=== PATIENT | female | born 1930 | race African-American/Black ===

== ENCOUNTER 2017-10-29 17:13 | Inpatient (IN) ==
[2017-10-29 21:11] LABS: Basophils % 0.4 % (0.0-0.8); Eosinophils % 0.8 % (0.00-10.9); Hematocrit 37.5 VOL% (35.7-47.0); Hemoglobin 13.5 GM/DL (12.0-16.0); Immature Granulocytes % 0.8 %; Immature Granulocytes Absolute 0.04 #; Lymphocytes # 2.2 10*3/uL (1.4-4.0); Mean Corpuscular Hemoglobin 30 PG (27-34); Mean Corpuscular Volume 83.3 FL (87-102); Mean Platelet Volume 9.9 FL (9.6-12.0); Monocytes # 0.6 10*3/uL (0.11-0.8); Monocytes % 12.1 % (1.7-12.7); Neutrophils # 1.9 10*3/uL (1.4-7.4); Neutrophils % 39.9 % (38.7-73.9); Platelet Count 208 T/CUMM (130-400); White Blood Count 4.9 T/CUMM (4-12)
[2017-10-29 21:29] LABS: Blood Urea Nitrogen 5 MG/DL (7-18); Calcium 8.1 MG/DL (8.5-10.1); Glucose 128 MG/DL (74-106); Osmolality,Calculated 240.2 MOS/KG (273-304); Potassium 3.6 MMOL/L (3.5-5.1); Troponin I Only < 0.015 NG/ML (0.00-0.045)
[2017-10-29 21:30] LABS: Sodium 120 MMOL/L (136-145)
[2017-10-29 22:30] LABS: Atypical Lymphocytes Few; Burr Cells Few; Eosinophils 1 % (0-10); Lymphocytes 58 % (20-55); Platelet Estimate Normal; Poikilocytosis Slight; Segmented Neutrophils 33 % (50-85); Total Cells Counted 100
[2017-10-29] MEDS: SODIUM CHLORIDE 0.9% 1,000 ML IV SCH (23:44)
[2017-10-30] MEDS: LEVOTHYROXINE 50 MCG TABLET PO SCH (06:17)
[2017-10-30 06:27] LABS: Calcium 8.1 MG/DL (8.5-10.1); Osmolality,Calculated 248.5 MOS/KG (273-304); Thyroid Stimulating Hormone 2.98 uIU/ml (0.358-3.74)
[2017-10-30] MEDS ORDERED: POTASSIUM CHLORIDE 20 MEQ TABLET PO PRN (08:16)
[2017-10-30] MEDS: amLODIPine 10 MG TABLET PO SCH (08:49)
[2017-10-30] MEDS: PRAVASTATIN 20 MG TABLET PO SCH (08:49)
[2017-10-30] MEDS: CARVEDILOL 6.25 MG TABLET PO SCH ×2 (08:49→21:05)
[2017-10-30] MEDS: SODIUM CHLORIDE 0.9% 1,000 ML IV SCH (11:32)
[2017-10-30] MEDS: SODIUM CHLORIDE 1 GM TABLET PO SCH ×2 (16:36→21:05)
[2017-10-31] MEDS: SODIUM CHLORIDE 0.9% 1,000 ML IV SCH (01:23)
[2017-10-31 04:56] LABS: Basophils % 0.2 % (0.0-0.8); Eosinophils % 0.5 % (0.00-10.9); Hematocrit 35.9 VOL% (35.7-47.0); Hemoglobin 12.6 GM/DL (12.0-16.0); Immature Granulocytes % 0.2 %; Immature Granulocytes Absolute 0.01 #; Lymphocytes % 45.5 % (21.3-54.2); Mean Corpuscular HGB Conc 35.1 GM/DL (32-36); Mean Corpuscular Hemoglobin 30 PG (27-34); Mean Corpuscular Volume 85.1 FL (87-102); Mean Platelet Volume 9.3 FL (9.6-12.0); Monocytes # 0.8 10*3/uL (0.11-0.8); Monocytes % 17.4 % (1.7-12.7); Neutrophils # 1.6 10*3/uL (1.4-7.4); Neutrophils % 36.2 % (38.7-73.9); Platelet Count 282 T/CUMM (130-400); Red Blood Count 4.22 MC/CUMM (3.8-5.5); Red Cell Distribution Width 12.3 % (9.3-17.3); White Blood Count 4.4 T/CUMM (4-12)
[2017-10-31 05:22] LABS: Calcium 8.2 MG/DL (8.5-10.1); Osmolality,Calculated 260.7 MOS/KG (273-304); Potassium 3.5 MMOL/L (3.5-5.1)
[2017-10-31 05:23] LABS: Eosinophils 1 % (0-10); Hypochromasia 1+; Lymphocytes 50 % (20-55); Segmented Neutrophils 38 % (50-85); Total Cells Counted 100
[2017-10-31 05:25] LABS: Atypical Lymphocytes Few; Microcytosis Slight; Platelet Estimate Normal
[2017-10-31] MEDS: LEVOTHYROXINE 50 MCG TABLET PO SCH (06:09)
[2017-10-31] MEDS: CARVEDILOL 6.25 MG TABLET PO SCH (08:54)
[2017-10-31] MEDS: PRAVASTATIN 20 MG TABLET PO SCH (08:54)
[2017-10-31] MEDS: amLODIPine 10 MG TABLET PO SCH (08:54)
[2017-10-31] MEDS: SODIUM CHLORIDE 1 GM TABLET PO SCH (08:54)
[2017-10-31 11:24] VITALS: BP 126/69
== END 2017-10-31 11:50 | disposition home or self-care (01) | DRG 641 ==
LOC: N.ED 17:13 → N.EDINP 21:44 → N.3E 22:32
PROVIDERS: ADMIT Internal Medicine Infectious Disease; ATTEND Internal Medicine Infectious Disease

== ENCOUNTER 2017-11-02 03:14 | Inpatient (IN) ==
[2017-11-02] MEDS ORDERED: SODIUM CHLORIDE 0.9% 500 ML IV STA (04:24)
[2017-11-02 04:35] LABS: Apearance,Urine Slightly Hazy (Clear); Bilirubin,Urine Negative (Negative); Blood, Urine Negative (Negative); Glucose,Urine (UA) 50 mg/dL (Negative); Granular Casts,Urine 3 /LPF (0-1); Hyaline Casts,Urine 6 /LPF (0-3); Ketones,Urine Negative (Negative); Mucus,Urine Few /LPF (Occasional); Nitrite,Urine Negative (Negative); Protein,Urine 100 MG/DL; RBC,Urine 6 /HPF (0-4); Squamous Epithelial Cell,Urine Few /HPF (0-10); Urine Color Yellow (Yellow); Urine Urobilinogen < 2.0 EU/DL (0.2-1.0); WBC,Urine 3 /HPF (0-6)
[2017-11-02] MEDS ORDERED: cefTRIAXone 1,000 MG in SODIUM CHLORIDE 0.9% 100 ML IV STA (04:43)
[2017-11-02] MEDS ORDERED: cefTRIAXone 1,000 MG VIAL ONE (04:52)
[2017-11-02 04:59] LABS: Basophils % 0.3 % (0.0-0.8); Eosinophils % 0.5 % (0.00-10.9); Hematocrit 36.5 VOL% (35.7-47.0); Hemoglobin 13.5 GM/DL (12.0-16.0); Immature Granulocytes % 0.8 %; Immature Granulocytes Absolute 0.05 #; Lymphocytes # 1.6 10*3/uL (1.4-4.0); Lymphocytes % 26.4 % (21.3-54.2); Mean Corpuscular Hemoglobin 31 PG (27-34); Mean Corpuscular Volume 82.4 FL (87-102); Mean Platelet Volume 8.7 FL (9.6-12.0); Monocytes # 0.9 10*3/uL (0.11-0.8); Monocytes % 14.5 % (1.7-12.7); Neutrophils # 3.5 10*3/uL (1.4-7.4); Neutrophils % 57.5 % (38.7-73.9); Platelet Count 310 T/CUMM (130-400); Red Blood Count 4.43 MC/CUMM (3.8-5.5); Red Cell Distribution Width 11.5 % (9.3-17.3); White Blood Count 6.1 T/CUMM (4-12)
[2017-11-02] MEDS ORDERED: ONDANSETRON 4 MG/2 ML VIAL IV STA (04:59)
[2017-11-02 05:06] LABS: INR 0.9; PT Patient Result 9.9 SECS
[2017-11-02 05:25] LABS: Alanine Aminotransferase 22 U/L (13-56); Albumin 3.9 G/DL (3.4-5.0); Alkaline Phosphatase 167 U/L (45-117); Aspartate Amino Transferase 22 U/L (0-37); Blood Urea Nitrogen 8 MG/DL (7-18); Calcium 8.4 MG/DL (8.5-10.1); Glucose 132 MG/DL (74-106); Magnesium 1.6 MG/DL (1.8-2.4); Osmolality,Calculated 237.5 MOS/KG (273-304); Potassium 3.2 MMOL/L (3.5-5.1); Total Protein 7.7 G/DL (6.4-8.3); Troponin I Only < 0.015 NG/ML (0.00-0.045)
[2017-11-02 05:27] LABS: Ammonia 33 UMOL/L (11-32)
[2017-11-02 05:31] LABS: Sodium 118 MMOL/L (136-145)
[2017-11-02] MEDS ORDERED: HYDROCORTISONE 100 MG VIAL IV STA (05:32)
[2017-11-02] MEDS ORDERED: MAGNESIUM SULF RIDER 2 GM in PREMIX 1 EACH IV STA (05:34)
[2017-11-02] MEDS ORDERED: POTASSIUM CHLORIDE 20 MEQ TABLET PO STA (05:34)
[2017-11-02] MEDS ORDERED: ONDANSETRON 4 MG/2 ML VIAL ONE (05:42)
[2017-11-02] MEDS ORDERED: MAGNESIUM SULF RIDER 50 ML IV ONE (05:42)
[2017-11-02] MEDS ORDERED: POTASSIUM CHLORIDE 20 MEQ TABLET PO ONE (05:42)
[2017-11-02] MEDS ORDERED: HYDROCORTISONE 100 MG VIAL ONE (05:42)
[2017-11-02] MEDS: SODIUM CHLORIDE 0.9% 1,000 ML IV SCH ×2 (08:51→22:24)
[2017-11-02] MEDS: POTASSIUM CHLORIDE 20 MEQ TABLET PO SCH ×3 (08:52→16:31)
[2017-11-02] MEDS: CARVEDILOL 6.25 MG TABLET PO SCH ×2 (08:52→20:13)
[2017-11-02] MEDS: LEVOTHYROXINE 50 MCG TABLET PO SCH (08:52)
[2017-11-02] MEDS: amLODIPine 10 MG TABLET PO SCH (08:52)
[2017-11-02] MEDS: PRAVASTATIN 20 MG TABLET PO SCH (08:52)
[2017-11-02] MEDS ORDERED: MAGNESIUM SULF RIDER 4 GM in PREMIX 1 EACH IV ONE (09:00)
[2017-11-02] MEDS ORDERED: ONDANSETRON 4 MG/2 ML VIAL IV PRN (10:31)
[2017-11-02] MEDS: ONDANSETRON 4 MG/2 ML VIAL IV PRN ×2 (14:35→19:42)
[2017-11-03] MEDS: SODIUM CHLORIDE 0.9% 1,000 ML IV SCH ×2 (04:13→11:29)
[2017-11-03 05:47] LABS: Basophils % 0.1 % (0.0-0.8); Eosinophils % 0.1 % (0.00-10.9); Hematocrit 31.8 VOL% (35.7-47.0); Hemoglobin 11.9 GM/DL (12.0-16.0); Immature Granulocytes % 0.4 %; Immature Granulocytes Absolute 0.03 #; Lymphocytes # 2.2 10*3/uL (1.4-4.0); Lymphocytes % 30.3 % (21.3-54.2); Mean Corpuscular HGB Conc 37.4 GM/DL (32-36); Mean Corpuscular Hemoglobin 30 PG (27-34); Mean Corpuscular Volume 81.1 FL (87-102); Mean Platelet Volume 8.8 FL (9.6-12.0); Monocytes % 14.5 % (1.7-12.7); Neutrophils # 3.9 10*3/uL (1.4-7.4); Neutrophils % 54.6 % (38.7-73.9); Platelet Count 297 T/CUMM (130-400); Red Blood Count 3.92 MC/CUMM (3.8-5.5); Red Cell Distribution Width 11.9 % (9.3-17.3); White Blood Count 7.2 T/CUMM (4-12)
[2017-11-03] MEDS: LEVOTHYROXINE 50 MCG TABLET PO SCH (05:58)
[2017-11-03 06:24] LABS: Calcium 7.5 MG/DL (8.5-10.1); Osmolality,Calculated 254.1 MOS/KG (273-304); Potassium 3.2 MMOL/L (3.5-5.1)
[2017-11-03] MEDS: PRAVASTATIN 20 MG TABLET PO SCH (09:52)
[2017-11-03] MEDS: CARVEDILOL 6.25 MG TABLET PO SCH ×2 (09:52→22:07)
[2017-11-03] MEDS: cefTRIAXone 1,000 MG in SYRINGE 1 EACH IV SCH (09:53)
[2017-11-03] MEDS: amLODIPine 10 MG TABLET PO SCH (09:53)
[2017-11-03] MEDS ORDERED: MAGNESIUM SULF RIDER 2 GM in PREMIX 1 EACH IV ONE (14:50)
[2017-11-03] MEDS: POTASSIUM CHLORIDE 20 MEQ TABLET PO SCH ×3 (15:53→22:07)
[2017-11-03] MEDS: ONDANSETRON 4 MG/2 ML VIAL IV PRN (15:53)
[2017-11-04 03:02] LABS: Calcium 7.9 MG/DL (8.5-10.1); Magnesium 2.3 MG/DL (1.8-2.4); Osmolality,Calculated 246.8 MOS/KG (273-304); Potassium 3.6 MMOL/L (3.5-5.1)
[2017-11-04] MEDS: LEVOTHYROXINE 50 MCG TABLET PO SCH (05:49)
[2017-11-04] MEDS: CARVEDILOL 6.25 MG TABLET PO SCH ×2 (08:44→21:40)
[2017-11-04] MEDS: amLODIPine 10 MG TABLET PO SCH (08:44)
[2017-11-04] MEDS: cefTRIAXone 1,000 MG in SYRINGE 1 EACH IV SCH (08:44)
[2017-11-04] MEDS: PRAVASTATIN 20 MG TABLET PO SCH (08:44)
[2017-11-04] MEDS: SODIUM CHLORIDE 0.9% 1,000 ML IV SCH ×2 (11:59)
[2017-11-05] MEDS: LEVOTHYROXINE 50 MCG TABLET PO SCH (06:25)
[2017-11-05] MEDS: SODIUM CHLORIDE 0.9% 1,000 ML IV SCH ×3 (06:25→14:24)
[2017-11-05] MEDS: PRAVASTATIN 20 MG TABLET PO SCH (09:25)
[2017-11-05] MEDS: CARVEDILOL 6.25 MG TABLET PO SCH (09:25)
[2017-11-05] MEDS: amLODIPine 10 MG TABLET PO SCH (09:25)
[2017-11-05] MEDS: cefTRIAXone 1,000 MG in SYRINGE 1 EACH IV SCH (09:26)
[2017-11-05 10:13] LABS: Calcium 8.1 MG/DL (8.5-10.1); Osmolality,Calculated 252.2 MOS/KG (273-304); Potassium 3.8 MMOL/L (3.5-5.1)
[2017-11-05] MEDS: CARVEDILOL 12.5 MG TABLET PO SCH (16:21)
[2017-11-06] MEDS: SODIUM CHLORIDE 0.9% 1,000 ML IV SCH ×2 (00:27→07:33)
[2017-11-06] MEDS: LEVOTHYROXINE 50 MCG TABLET PO SCH (06:27)
[2017-11-06 07:04] LABS: Calcium 8.3 MG/DL (8.5-10.1); Osmolality,Calculated 258.8 MOS/KG (273-304); Potassium 3.3 MMOL/L (3.5-5.1)
[2017-11-06] MEDS: PRAVASTATIN 20 MG TABLET PO SCH (08:06)
[2017-11-06] MEDS: amLODIPine 10 MG TABLET PO SCH (08:06)
[2017-11-06] MEDS: CARVEDILOL 12.5 MG TABLET PO SCH (08:07)
[2017-11-06] MEDS ORDERED: TOLVAPTAN 15 MG TABLET PO SCH (11:00)
[2017-11-06 11:59] VITALS: BP 147/68
== END 2017-11-06 13:14 | DRG 641 ==
LOC: N.ED 03:14 → N.EDINP 06:15 → SUATTDRO 06:15 → N.EDINP 07:56 → N.2E 08:03
PROVIDERS: ADMIT Internal Medicine; ATTEND Internal Medicine

== ENCOUNTER 2017-11-07 10:46 | Inpatient (IN) ==
[2017-11-07 11:27] LABS: Basophils % 0.2 % (0.0-0.8); Eosinophils % 0.1 % (0.00-10.9); Hematocrit 35.8 VOL% (35.7-47.0); Hemoglobin 12.5 GM/DL (12.0-16.0); Immature Granulocytes % 0.5 %; Immature Granulocytes Absolute 0.04 #; Mean Corpuscular HGB Conc 34.9 GM/DL (32-36); Mean Corpuscular Hemoglobin 30 PG (27-34); Mean Corpuscular Volume 85.9 FL (87-102); Mean Platelet Volume 8.2 FL (9.6-12.0); Monocytes # 1.2 10*3/uL (0.11-0.8); Monocytes % 14.5 % (1.7-12.7); Neutrophils # 5.2 10*3/uL (1.4-7.4); Neutrophils % 60.7 % (38.7-73.9); Platelet Count 363 T/CUMM (130-400); Red Blood Count 4.17 MC/CUMM (3.8-5.5); Red Cell Distribution Width 12.9 % (9.3-17.3); White Blood Count 8.5 T/CUMM (4-12)
[2017-11-07 11:53] LABS: Lactic Acid 1.2 MMOL/L (0.4-2.0)
[2017-11-07 12:04] LABS: Albumin 3.4 G/DL (3.4-5.0); Bilirubin,Total 0.8 MG/DL (0.2-1.0); Calcium 8.7 MG/DL (8.5-10.1); Osmolality,Calculated 278.5 MOS/KG (273-304); Potassium 3.7 MMOL/L (3.5-5.1); Total Protein 7.4 G/DL (6.4-8.3)
[2017-11-07 12:25] LABS: Apearance,Urine CLEAR (Clear); Bilirubin,Urine Negative (Negative); Blood, Urine Negative (Negative); Glucose,Urine (UA) Negative (Negative); Ketones,Urine Negative (Negative); Mucus,Urine Occasional /LPF (Occasional); Nitrite,Urine Negative (Negative); Protein,Urine Negative; RBC,Urine <1 /HPF (0-4); Squamous Epithelial Cell,Urine Occasional /HPF (0-10); Urine Color Straw (Yellow); Urine Specific Gravity 1.003 (1.001-1.035); Urine Urobilinogen < 2.0 EU/DL (0.2-1.0); WBC,Urine 1 /HPF (0-6)
[2017-11-07] MEDS ORDERED: ACYCLOVIR INJ 1,250 MG in SODIUM CHLORIDE 0.9% 250 ML IV SCH (13:30)
[2017-11-07] MEDS ORDERED: AMPICILLIN INJ 1,000 MG in SODIUM CHLORIDE 0.9% 100 ML IV SCH (13:30)
[2017-11-07 14:06] LABS: ABG Base Excess 4.4 MMOL/L (-2.5-2.5); ABG HCO3 28.2 MMOL/L (20-26); ABG Oxygen Saturation 91.9 % (95-100); ABG PCO2 39.5 MM HG (35-48); ABG PH 7.464 (7.35-7.45); ABG PO2 61.2 MM HG (80-95)
[2017-11-07] MEDS ORDERED: cefTRIAXone 1,000 MG VIAL ONE (15:17)
[2017-11-07 16:24] LABS: Glucose,CSF 59 MG/DL (40-70)
[2017-11-07 16:54] LABS: Appearance,CSF Cloudy; Lymphocytes,CSF 40 %; Neutrophils,CSF 60 %; Red Blood Cell,CSF 2505 C/CUMM; White Blood Cell,CSF 75 C/CUMM
[2017-11-07] MEDS: cefTRIAXone 2,000 MG in SYRINGE 1 EACH IV SCH (18:15)
[2017-11-07] MEDS: VANCOMYCIN INJ 1,000 MG in SODIUM CHLORIDE 0.9% 250 ML IV SCH (18:53)
[2017-11-07] MEDS: ACYCLOVIR INJ 600 MG in SODIUM CHLORIDE 0.9% 100 ML IV SCH (19:55)
[2017-11-07] MEDS: SODIUM CHLORIDE 0.9% 1,000 ML IV SCH (19:55)
[2017-11-07] MEDS: AMPICILLIN INJ 2,000 MG in SODIUM CHLORIDE 0.9% 100 ML IV SCH (21:15)
[2017-11-08] MEDS: cefTRIAXone 2,000 MG in SYRINGE 1 EACH IV SCH ×2 (03:45→13:15)
[2017-11-08] MEDS: AMPICILLIN INJ 2,000 MG in SODIUM CHLORIDE 0.9% 100 ML IV SCH ×2 (04:05→08:48)
[2017-11-08 05:02] LABS: Basophils % 0.2 % (0.0-0.8); Hematocrit 32.5 VOL% (35.7-47.0); Hemoglobin 11.5 GM/DL (12.0-16.0); Immature Granulocytes % 0.5 %; Immature Granulocytes Absolute 0.06 #; Lymphocytes # 1.3 10*3/uL (1.4-4.0); Lymphocytes % 10.6 % (21.3-54.2); Mean Corpuscular HGB Conc 35.4 GM/DL (32-36); Mean Corpuscular Hemoglobin 30 PG (27-34); Mean Corpuscular Volume 85.8 FL (87-102); Mean Platelet Volume 8.2 FL (9.6-12.0); Monocytes # 1.8 10*3/uL (0.11-0.8); Monocytes % 14.1 % (1.7-12.7); Neutrophils # 9.5 10*3/uL (1.4-7.4); Neutrophils % 74.6 % (38.7-73.9); Platelet Count 285 T/CUMM (130-400); Red Blood Count 3.79 MC/CUMM (3.8-5.5); Red Cell Distribution Width 13.2 % (9.3-17.3); White Blood Count 12.7 T/CUMM (4-12)
[2017-11-08 05:28] LABS: Albumin 3.1 G/DL (3.4-5.0); Bilirubin,Total 0.9 MG/DL (0.2-1.0); Calcium 8.4 MG/DL (8.5-10.1); Osmolality,Calculated 289.7 MOS/KG (273-304); Potassium 3.3 MMOL/L (3.5-5.1); Total Protein 6.5 G/DL (6.4-8.3)
[2017-11-08] MEDS: ACYCLOVIR INJ 600 MG in SODIUM CHLORIDE 0.9% 100 ML IV SCH ×3 (05:35→22:10)
[2017-11-08] MEDS ORDERED: POTASSIUM CHLORIDE 20 MEQ TABLET PO ONE (08:30)
[2017-11-08] MEDS ORDERED: DEXTROSE 50% 25 GM/50 ML VIAL IV PRN (08:38)
[2017-11-08] MEDS ORDERED: GLUCAGON 1 MG VIAL IM PRN (08:38)
[2017-11-08] MEDS ORDERED: CARVEDILOL 6.25 MG TABLET PO SCH (09:00)
[2017-11-08] MEDS: MULTIVITAMIN LIQUID (CENTRUM) 60 ML BOTTLE PER TUBE SCH (09:20)
[2017-11-08] MEDS: SODIUM CHLORIDE 0.9% 1,000 ML IV SCH (09:46)
[2017-11-08] MEDS: POTASSIUM CHLORIDE 20 MEQ/15 ML UDCUP PER TUBE PRN ×3 (12:10→17:06)
[2017-11-08] MEDS: INSULIN REGULAR 100 UNIT/ML SUBCUT SCH ×2 (12:24→17:09)
[2017-11-08] MEDS ORDERED: LORazepam 2 MG/1 ML VIAL IM ONE (13:20)
[2017-11-08] MEDS: AMPICILLIN INJ 2,000 MG in SODIUM CHLORIDE 0.9% 50 ML IV SCH ×2 (15:11→22:09)
[2017-11-08] MEDS ORDERED: ACETAMINOPHEN 325 MG/10.15 ML UDCUP PO PRN (15:23)
[2017-11-08] MEDS: POTASSIUM CHLORIDE 20 MEQ TABLET PO SCH (15:43)
[2017-11-08] MEDS ORDERED: CARVEDILOL 12.5 MG TABLET PO SCH (17:00)
[2017-11-08] MEDS: VANCOMYCIN INJ 1,000 MG in SODIUM CHLORIDE 0.9% 250 ML IV SCH (17:07)
[2017-11-08] MEDS: CARVEDILOL 12.5 MG TABLET PO SCH (22:09)
[2017-11-09] MEDS: INSULIN REGULAR 100 UNIT/ML SUBCUT SCH ×4 (00:33→18:25)
[2017-11-09] MEDS: cefTRIAXone 2,000 MG in SYRINGE 1 EACH IV SCH ×2 (02:59→14:53)
[2017-11-09] MEDS: AMPICILLIN INJ 2,000 MG in SODIUM CHLORIDE 0.9% 50 ML IV SCH ×4 (04:00→21:42)
[2017-11-09] MEDS: HALOPERIDOL 5 MG/ML AMP IV PRN ×2 (04:52→15:08)
[2017-11-09 06:21] LABS: Basophils % 0.1 % (0.0-0.8); Eosinophils % 0.1 % (0.00-10.9); Hematocrit 34.9 VOL% (35.7-47.0); Hemoglobin 11.8 GM/DL (12.0-16.0); Immature Granulocytes % 0.5 %; Immature Granulocytes Absolute 0.08 #; Lymphocytes # 2.3 10*3/uL (1.4-4.0); Lymphocytes % 15.1 % (21.3-54.2); Mean Corpuscular HGB Conc 33.8 GM/DL (32-36); Mean Corpuscular Hemoglobin 30 PG (27-34); Mean Corpuscular Volume 89.5 FL (87-102); Mean Platelet Volume 8.8 FL (9.6-12.0); Monocytes # 2.1 10*3/uL (0.11-0.8); Monocytes % 13.8 % (1.7-12.7); Neutrophils # 10.7 10*3/uL (1.4-7.4); Neutrophils % 70.4 % (38.7-73.9); Platelet Count 252 T/CUMM (130-400); Red Cell Distribution Width 13.9 % (9.3-17.3); White Blood Count 15.3 T/CUMM (4-12)
[2017-11-09] MEDS: LEVOTHYROXINE 50 MCG TABLET PO SCH (06:30)
[2017-11-09] MEDS: ACYCLOVIR INJ 600 MG in SODIUM CHLORIDE 0.9% 100 ML IV SCH ×3 (06:30→21:43)
[2017-11-09 06:53] LABS: Albumin 3.2 G/DL (3.4-5.0); Bilirubin,Total 0.8 MG/DL (0.2-1.0); Magnesium 2.4 MG/DL (1.8-2.4); Osmolality,Calculated 309.6 MOS/KG (273-304); Potassium 3.8 MMOL/L (3.5-5.1); Total Protein 7.2 G/DL (6.4-8.3)
[2017-11-09 06:57] LABS: Osmolality,Calculated 307.7 MOS/KG (273-304); Potassium 3.6 MMOL/L (3.5-5.1); Prealbumin 16.9 MG/DL (20-40)
[2017-11-09] MEDS: CARVEDILOL 12.5 MG TABLET PO SCH ×2 (10:15→18:44)
[2017-11-09] MEDS: POTASSIUM CHLORIDE 20 MEQ TABLET PO SCH (10:15)
[2017-11-09] MEDS: PRAVASTATIN 20 MG TABLET PO SCH (10:15)
[2017-11-09] MEDS: MULTIVITAMIN LIQUID (CENTRUM) 60 ML BOTTLE PER TUBE SCH (12:33)
[2017-11-09 16:25] LABS: Apearance,Urine CLOUDY (Clear); Bilirubin,Urine Negative (Negative); Blood, Urine Moderate mg/dL (Negative); Glucose,Urine (UA) Negative (Negative); Ketones,Urine Negative (Negative); Mucus,Urine Occasional /LPF (Occasional); Nitrite,Urine Negative (Negative); Protein,Urine Negative; RBC,Urine 28 /HPF (0-4); Squamous Epithelial Cell,Urine Occasional /HPF (0-10); Urine Color Yellow (Yellow); Urine Specific Gravity 1.016 (1.001-1.035); Urine Urobilinogen < 2.0 EU/DL (0.2-1.0); WBC,Urine 13 /HPF (0-6)
[2017-11-09] MEDS: VANCOMYCIN INJ 1,000 MG in SODIUM CHLORIDE 0.9% 250 ML IV SCH (19:00)
[2017-11-10] MEDS ORDERED: hydrALAZINE 20 MG/1 ML VIAL IV PRN (00:06)
[2017-11-10] MEDS: INSULIN REGULAR 100 UNIT/ML SUBCUT SCH ×4 (00:23→18:03)
[2017-11-10] MEDS: AMPICILLIN INJ 2,000 MG in SODIUM CHLORIDE 0.9% 50 ML IV SCH (02:52)
[2017-11-10] MEDS: cefTRIAXone 2,000 MG in SYRINGE 1 EACH IV SCH ×2 (02:53→13:38)
[2017-11-10 04:07] LABS: Basophils % 0.3 % (0.0-0.8); Eosinophils % 0.3 % (0.00-10.9); Hematocrit 32.4 VOL% (35.7-47.0); Hemoglobin 10.9 GM/DL (12.0-16.0); Immature Granulocytes % 0.7 %; Immature Granulocytes Absolute 0.09 #; Lymphocytes # 2.2 10*3/uL (1.4-4.0); Lymphocytes % 17.2 % (21.3-54.2); Mean Corpuscular HGB Conc 33.6 GM/DL (32-36); Mean Corpuscular Hemoglobin 31 PG (27-34); Mean Platelet Volume 8.5 FL (9.6-12.0); Monocytes # 1.6 10*3/uL (0.11-0.8); Monocytes % 12.8 % (1.7-12.7); Neutrophils # 8.7 10*3/uL (1.4-7.4); Neutrophils % 68.7 % (38.7-73.9); Platelet Count 169 T/CUMM (130-400); Red Blood Count 3.56 MC/CUMM (3.8-5.5); Red Cell Distribution Width 14.5 % (9.3-17.3); White Blood Count 12.6 T/CUMM (4-12)
[2017-11-10 04:37] LABS: Albumin 2.9 G/DL (3.4-5.0); Bilirubin,Total 0.5 MG/DL (0.2-1.0); Calcium 8.4 MG/DL (8.5-10.1); Osmolality,Calculated 303.7 MOS/KG (273-304); Potassium 3.3 MMOL/L (3.5-5.1); Total Protein 6.5 G/DL (6.4-8.3)
[2017-11-10] MEDS: ACYCLOVIR INJ 600 MG in SODIUM CHLORIDE 0.9% 100 ML IV SCH ×3 (06:19→22:24)
[2017-11-10] MEDS: LEVOTHYROXINE 50 MCG TABLET PO SCH (06:20)
[2017-11-10] MEDS: POTASSIUM CHLORIDE 20 MEQ/15 ML UDCUP PER TUBE PRN ×3 (06:23→10:52)
[2017-11-10] MEDS: AMPICILLIN INJ 2,000 MG in SODIUM CHLORIDE 0.9% 100 ML IV SCH ×3 (08:15→21:25)
[2017-11-10] MEDS: CARVEDILOL 12.5 MG TABLET PO SCH ×2 (08:16→17:48)
[2017-11-10] MEDS: POTASSIUM CHLORIDE 20 MEQ TABLET PO SCH (08:16)
[2017-11-10] MEDS: PRAVASTATIN 20 MG TABLET PO SCH (08:16)
[2017-11-10] MEDS: MULTIVITAMIN LIQUID (CENTRUM) 60 ML BOTTLE PER TUBE SCH (08:22)
[2017-11-10] MEDS ORDERED: DEXTROSE 5% NACL 0.22% 1,000 ML IV SCH (08:30)
[2017-11-10 10:22] LABS: CMV PCR Source CSF; Epstein-Barr Virus Result Negative (Negative); Epstein-Barr Virus Source CSF; Specimen Source CSF
[2017-11-10] MEDS: DEXTROSE 5% NACL 0.22% 1,000 ML IV SCH ×2 (10:52→22:25)
[2017-11-10] MEDS: VANCOMYCIN INJ 1,000 MG in SODIUM CHLORIDE 0.45% 250 ML IV SCH (13:38)
[2017-11-11] MEDS: INSULIN REGULAR 100 UNIT/ML SUBCUT SCH ×4 (00:57→17:15)
[2017-11-11] MEDS: cefTRIAXone 2,000 MG in SYRINGE 1 EACH IV SCH (02:23)
[2017-11-11] MEDS: VANCOMYCIN INJ 1,000 MG in SODIUM CHLORIDE 0.45% 250 ML IV SCH (02:40)
[2017-11-11] MEDS: AMPICILLIN INJ 2,000 MG in SODIUM CHLORIDE 0.9% 100 ML IV SCH ×2 (03:28→10:35)
[2017-11-11] MEDS: ACYCLOVIR INJ 600 MG in SODIUM CHLORIDE 0.9% 100 ML IV SCH (06:21)
[2017-11-11] MEDS: LEVOTHYROXINE 50 MCG TABLET PO SCH (06:21)
[2017-11-11] MEDS: DEXTROSE 5% NACL 0.22% 1,000 ML IV SCH ×3 (07:14→22:02)
[2017-11-11 07:22] LABS: Osmolality,Calculated 278.4 MOS/KG (273-304); Potassium 3.3 MMOL/L (3.5-5.1)
[2017-11-11] MEDS: POTASSIUM CHLORIDE 20 MEQ TABLET PO SCH (10:32)
[2017-11-11] MEDS: PRAVASTATIN 20 MG TABLET PO SCH (10:33)
[2017-11-11] MEDS: CARVEDILOL 12.5 MG TABLET PO SCH ×2 (10:33→17:15)
[2017-11-11] MEDS: MULTIVITAMIN LIQUID (CENTRUM) 60 ML BOTTLE PER TUBE SCH (10:35)
[2017-11-11 11:16] LABS: VDRL Spinal Fluid Negative (Negative)
[2017-11-11] MEDS ORDERED: POTASSIUM CHLORIDE 20 MEQ TABLET PO ONE (13:42)
[2017-11-12] MEDS: INSULIN REGULAR 100 UNIT/ML SUBCUT SCH ×4 (00:12→18:28)
[2017-11-12 00:36] LABS: Enterovirus PCR Source CSF
[2017-11-12 07:08] LABS: Calcium 7.6 MG/DL (8.5-10.1); Magnesium 1.7 MG/DL (1.8-2.4); Osmolality,Calculated 271.8 MOS/KG (273-304); Potassium 3.4 MMOL/L (3.5-5.1)
[2017-11-12] MEDS: LEVOTHYROXINE 50 MCG TABLET PO SCH (07:18)
[2017-11-12] MEDS: DEXTROSE 5% NACL 0.22% 1,000 ML IV SCH ×2 (07:19→22:21)
[2017-11-12] MEDS: CARVEDILOL 12.5 MG TABLET PO SCH ×2 (09:38→17:24)
[2017-11-12] MEDS: PRAVASTATIN 20 MG TABLET PO SCH (09:39)
[2017-11-12] MEDS: POTASSIUM CHLORIDE 20 MEQ TABLET PO SCH (09:41)
[2017-11-12] MEDS: MAGNESIUM OXIDE 400 MG TABLET PO SCH ×2 (09:42→21:18)
[2017-11-12] MEDS: MULTIVITAMIN LIQUID (CENTRUM) 60 ML BOTTLE PER TUBE SCH (09:43)
[2017-11-12] MEDS ORDERED: POTASSIUM CHLORIDE 20 MEQ TABLET PO ONE ×2 (12:13→14:16)
[2017-11-12] MEDS ORDERED: MAGNESIUM OXIDE 400 MG TABLET PO ONE (14:16)
[2017-11-13] MEDS: INSULIN REGULAR 100 UNIT/ML SUBCUT SCH ×4 (00:36→18:07)
[2017-11-13] MEDS: LEVOTHYROXINE 50 MCG TABLET PO SCH (06:24)
[2017-11-13 06:49] LABS: Basophils % 0.4 % (0.0-0.8); Eosinophils # 0.1 10*3/uL (0.0-0.87); Eosinophils % 1.9 % (0.00-10.9); Hematocrit 30.7 VOL% (35.7-47.0); Hemoglobin 10.3 GM/DL (12.0-16.0); Immature Granulocytes % 0.4 %; Immature Granulocytes Absolute 0.03 #; Lymphocytes # 1.8 10*3/uL (1.4-4.0); Mean Corpuscular HGB Conc 33.6 GM/DL (32-36); Mean Corpuscular Hemoglobin 30 PG (27-34); Mean Corpuscular Volume 88.7 FL (87-102); Mean Platelet Volume 9.1 FL (9.6-12.0); Monocytes # 0.6 10*3/uL (0.11-0.8); Monocytes % 9.1 % (1.7-12.7); Neutrophils # 4.4 10*3/uL (1.4-7.4); Neutrophils % 63.2 % (38.7-73.9); Platelet Count 154 T/CUMM (130-400); Red Blood Count 3.46 MC/CUMM (3.8-5.5); Red Cell Distribution Width 13.2 % (9.3-17.3)
[2017-11-13 07:17] LABS: Albumin 2.8 G/DL (3.4-5.0); Bilirubin,Total 1.6 MG/DL (0.2-1.0); Calcium 8.3 MG/DL (8.5-10.1); Magnesium 1.8 MG/DL (1.8-2.4); Osmolality,Calculated 267.1 MOS/KG (273-304); Potassium 3.6 MMOL/L (3.5-5.1); Total Protein 6.2 G/DL (6.4-8.3)
[2017-11-13] MEDS: DEXTROSE 5% NACL 0.22% 1,000 ML IV SCH ×3 (08:27→18:26)
[2017-11-13] MEDS: CARVEDILOL 12.5 MG TABLET PO SCH ×2 (09:06→18:07)
[2017-11-13] MEDS: MAGNESIUM OXIDE 400 MG TABLET PO SCH ×2 (09:06→20:00)
[2017-11-13] MEDS: PRAVASTATIN 20 MG TABLET PO SCH (09:06)
[2017-11-13] MEDS: POTASSIUM CHLORIDE 20 MEQ TABLET PO SCH (09:06)
[2017-11-13] MEDS: MULTIVITAMIN LIQUID (CENTRUM) 60 ML BOTTLE PER TUBE SCH (09:07)
[2017-11-14] MEDS: INSULIN REGULAR 100 UNIT/ML SUBCUT SCH ×3 (01:28→11:49)
[2017-11-14] MEDS: DEXTROSE 5% NACL 0.22% 1,000 ML IV SCH (06:05)
[2017-11-14] MEDS: LEVOTHYROXINE 50 MCG TABLET PO SCH (06:05)
[2017-11-14] MEDS: MULTIVITAMIN LIQUID (CENTRUM) 60 ML BOTTLE PER TUBE SCH (08:37)
[2017-11-14] MEDS: PRAVASTATIN 20 MG TABLET PO SCH (08:38)
[2017-11-14] MEDS: MAGNESIUM OXIDE 400 MG TABLET PO SCH (08:38)
[2017-11-14] MEDS: CARVEDILOL 12.5 MG TABLET PO SCH (08:38)
[2017-11-14] MEDS: POTASSIUM CHLORIDE 20 MEQ TABLET PO SCH (08:38)
[2017-11-14 11:45] VITALS: BP 168/80
== END 2017-11-14 12:10 | disposition home health service (06) | DRG 880 ==
LOC: EDBD → EDUNIT# → N.ED 10:46 → N.EDINP 11:20 → SUATTDRO 11:20 → SUPCPDRO 11:20 → N.CC 18:34 → N.5E 11-10 15:46
PROVIDERS: ADMIT Internal Medicine; ATTEND Internal Medicine Cardiovascular Disease

== ENCOUNTER 2022-07-04 07:47 | Inpatient (IN) ==
[2022-07-04 08:56] LABS: Squamous Epithelial Cell,Urine Occasional /HPF (0-10)
[2022-07-04 08:57] LABS: Bilirubin,Urine Negative (Negative); Blood, Urine Trace mg/dL (Negative); Glucose,Urine (UA) Negative (Negative); Ketones,Urine Negative (Negative); Nitrite,Urine Negative (Negative); Protein,Urine Negative (Negative); Urine Appearance Clear (Clear); Urine Color Light Yellow (Yellow); Urine Specific Gravity 1.015 (1.001-1.035); Urine Urobilinogen 0.2 eU/dL (<2.0); Urine pH 7.5 (4.5-8.0)
[2022-07-04 10:13] LABS: Basophils % 0.5 % (0.0-0.8); Eosinophils # 0.1 10*3/uL (0.0-0.87); Hematocrit 38.7 VOL% (35.7-47.0); Hemoglobin 13.3 GM/DL (12.0-16.0); Immature Granulocytes % 0.4 %; Immature Granulocytes Absolute 0.03 #; Lymphocytes # 2.1 10*3/uL (1.4-4.0); Lymphocytes % 28.8 % (21.3-54.2); Mean Corpuscular HGB Conc 34.4 GM/DL (32-36); Mean Platelet Volume 8.8 FL (9.6-12.0); Monocytes # 0.7 10*3/uL (0.11-0.8); Monocytes % 9.9 % (1.7-12.7); Neutrophils % 59.4 % (38.7-73.9); Platelet Count 292 T/CUMM (130-400); Red Blood Count 4.45 MC/CUMM (3.8-5.5); White Blood Count 7.3 T/CUMM (4-12)
[2022-07-04 10:35] LABS: Albumin 4.4 G/DL (3.4-5.0); Bilirubin,Total 0.8 MG/DL (0.20-1.00); Calcium 9.2 MG/DL (8.5-10.1); Osmolality,Calculated 248.6 MOS/KG (273-304); Potassium 3.6 MMOL/L (3.5-5.1); Total Protein 8.6 G/DL (6.4-8.2)
[2022-07-04] MEDS ORDERED: SODIUM CHLORIDE 0.9% 500 ML IV STA (10:46)
[2022-07-04] MEDS ORDERED: GLUCAGON 1 MG VIAL IM PRN (12:18)
[2022-07-04] MEDS ORDERED: ACETAMINOPHEN 325 MG TABLET PO PRN (12:18)
[2022-07-04] MEDS ORDERED: ONDANSETRON 4 MG/2 ML VIAL IV PRN (12:18)
[2022-07-04] MEDS ORDERED: DEXTROSE 10% 250 ML BAG IV PRN (12:24)
[2022-07-04] MEDS: SODIUM CHLORIDE 0.9% 1,000 ML IV SCH ×2 (12:31→22:00)
[2022-07-04] MEDS: ENOXAPARIN 30 MG/0.3 ML SYRINGE SUBCUT SCH (12:53)
[2022-07-04] MEDS ORDERED: POLYETHYLENE GLYCOL POWDER 17 GM PACK PO PRN (15:00)
[2022-07-04 18:51] LABS: Calcium 8.8 MG/DL (8.5-10.1); Potassium 4.3 MMOL/L (3.5-5.1)
[2022-07-04 20:14] LABS: Osmolality,Calculated 260.8 MOS/KG (273-304)
[2022-07-04] MEDS: carvediloL 6.25 MG TABLET PO SCH (21:58)
[2022-07-04 22:51] LABS: Calcium 8.1 MG/DL (8.5-10.1); Osmolality,Calculated 259.8 MOS/KG (273-304); Potassium 3.4 MMOL/L (3.5-5.1)
[2022-07-05 06:31] LABS: Basophils % 0.6 % (0.0-0.8); Eosinophils # 0.1 10*3/uL (0.0-0.87); Eosinophils % 1.8 % (0.00-10.9); Hematocrit 39.4 VOL% (35.7-47.0); Hemoglobin 13.6 GM/DL (12.0-16.0); Immature Granulocytes % 0.4 %; Immature Granulocytes Absolute 0.03 #; Lymphocytes # 1.8 10*3/uL (1.4-4.0); Lymphocytes % 27.3 % (21.3-54.2); Mean Corpuscular HGB Conc 34.5 GM/DL (32-36); Mean Corpuscular Volume 88.1 FL (87-102); Mean Platelet Volume 8.7 FL (9.6-12.0); Monocytes # 0.9 10*3/uL (0.11-0.8); Monocytes % 12.8 % (1.7-12.7); Neutrophils % 57.1 % (38.7-73.9); Platelet Count 294 T/CUMM (130-400); Red Blood Count 4.47 MC/CUMM (3.8-5.5); Red Cell Distribution Width 13.2 % (9.3-17.3); White Blood Count 6.7 T/CUMM (4-12)
[2022-07-05 06:54] LABS: Albumin 3.8 G/DL (3.4-5.0); Bilirubin,Total 0.9 MG/DL (0.20-1.00); Calcium 8.8 MG/DL (8.5-10.1); Osmolality,Calculated 264.5 MOS/KG (273-304); Potassium 3.3 MMOL/L (3.5-5.1); Total Protein 7.8 G/DL (6.4-8.2)
[2022-07-05] MEDS: LEVOTHYROXINE 50 MCG TABLET PO SCH (07:06)
[2022-07-05] MEDS ORDERED: POTASSIUM CHLORIDE 20 MEQ TABLET PO ONE (08:30)
[2022-07-05] MEDS: carvediloL 6.25 MG TABLET PO SCH ×2 (09:18→20:15)
[2022-07-05] MEDS: amLODIPine 10 MG TABLET PO SCH (09:18)
[2022-07-05 11:54] LABS: Calcium 8.8 MG/DL (8.5-10.1); Osmolality,Calculated 262.7 MOS/KG (273-304); Potassium 3.2 MMOL/L (3.5-5.1)
[2022-07-05] MEDS: ENOXAPARIN 30 MG/0.3 ML SYRINGE SUBCUT SCH (20:15)
[2022-07-05] MEDS ORDERED: SIMVASTATIN 10 MG TABLET PO SCH (21:00)
[2022-07-05] MEDS: SODIUM CHLORIDE 0.9% 1,000 ML IV SCH (22:45)
[2022-07-06 06:13] LABS: Basophils % 0.4 % (0.0-0.8); Eosinophils # 0.2 10*3/uL (0.0-0.87); Eosinophils % 1.9 % (0.00-10.9); Hematocrit 38.6 VOL% (35.7-47.0); Hemoglobin 13.3 GM/DL (12.0-16.0); Immature Granulocytes % 0.3 %; Immature Granulocytes Absolute 0.02 #; Lymphocytes # 2.2 10*3/uL (1.4-4.0); Lymphocytes % 28.9 % (21.3-54.2); Mean Corpuscular HGB Conc 34.5 GM/DL (32-36); Mean Corpuscular Volume 88.3 FL (87-102); Mean Platelet Volume 8.5 FL (9.6-12.0); Monocytes # 0.9 10*3/uL (0.11-0.8); Monocytes % 12.2 % (1.7-12.7); Neutrophils % 56.3 % (38.7-73.9); Platelet Count 292 T/CUMM (130-400); Red Blood Count 4.37 MC/CUMM (3.8-5.5); Red Cell Distribution Width 13.2 % (9.3-17.3); White Blood Count 7.7 T/CUMM (4-12)
[2022-07-06] MEDS: LEVOTHYROXINE 50 MCG TABLET PO SCH (06:19)
[2022-07-06 06:30] LABS: Calcium 8.5 MG/DL (8.5-10.1); Osmolality,Calculated 267.2 MOS/KG (273-304); Potassium 3.1 MMOL/L (3.5-5.1)
[2022-07-06 06:36] LABS: Eosinophils 5 % (0-10); Lymphocytes 33 % (20-55); Platelet Estimate Adequate; Total Cells Counted 100
[2022-07-06] MEDS ORDERED: POTASSIUM CHLORIDE 20 MEQ TABLET PO ONE ×2 (08:30→15:00)
[2022-07-06] MEDS: amLODIPine 10 MG TABLET PO SCH (08:45)
[2022-07-06] MEDS: carvediloL 6.25 MG TABLET PO SCH (08:46)
[2022-07-06 12:32] VITALS: BP 147/57
[2022-07-06] MEDS: SODIUM CHLORIDE 0.9% 1,000 ML IV SCH ×2 (16:23→16:24)
== END 2022-07-06 15:28 | disposition home or self-care (01) | DRG 641 ==
LOC: N.ED 07:47 → N.EDINP 12:18 → N.5E 12:40
PROVIDERS: ADMIT Internal Medicine Geriatric Medicine; ATTEND Internal Medicine Geriatric Medicine

== ENCOUNTER 2022-07-09 18:32 | Inpatient (IN) ==
[2022-07-09] MEDS ORDERED: SODIUM CHLORIDE 0.9% 500 ML IV STA (19:42)
[2022-07-09] MEDS ORDERED: hydrALAZINE 20 MG/1 ML VIAL ONE (19:43)
[2022-07-09 19:55] LABS: Basophils % 0.5 % (0.0-0.8); Eosinophils % 0.5 % (0.00-10.9); Hematocrit 36.3 VOL% (35.7-47.0); Hemoglobin 12.5 GM/DL (12.0-16.0); Immature Granulocytes % 0.5 %; Immature Granulocytes Absolute 0.04 #; Lymphocytes # 1.8 10*3/uL (1.4-4.0); Lymphocytes % 20.4 % (21.3-54.2); Mean Corpuscular HGB Conc 34.4 GM/DL (32-36); Mean Corpuscular Volume 87.9 FL (87-102); Mean Platelet Volume 8.3 FL (9.6-12.0); Monocytes % 11.8 % (1.7-12.7); Neutrophils % 66.3 % (38.7-73.9); Platelet Count 227 T/CUMM (130-400); Red Blood Count 4.13 MC/CUMM (3.8-5.5); Red Cell Distribution Width 13.2 % (9.3-17.3); White Blood Count 8.6 T/CUMM (4-12)
[2022-07-09 19:59] LABS: PT Patient Result 10.6 SECS (10.1-12.1)
[2022-07-09 20:10] LABS: Alanine Aminotransferase 25 U/L (13-56); Albumin 3.7 G/DL (3.4-5.0); Alkaline Phosphatase 161 U/L (45-117); Aspartate Amino Transferase 41 U/L (0-37); Blood Urea Nitrogen 16 MG/DL (7-18); CKMB % 1.09 %; Calcium 8.7 MG/DL (8.5-10.1); Carbon Dioxide 26 MMOL/L (21-32); Chloride 96 MMOL/L (98-107); Free T4 (Free Thyroxine) 1.42 NG/DL (0.76-1.46); Glucose 93 MG/DL (74-106); Osmolality,Calculated 266.4 MOS/KG (273-304); Potassium 3.4 MMOL/L (3.5-5.1); Sodium 133 MMOL/L (136-145); Total Protein 7.7 G/DL (6.4-8.2)
[2022-07-09 21:50] LABS: Bilirubin,Urine Negative (Negative); Glucose,Urine (UA) Negative (Negative); Ketones,Urine 40 mg/dL (Negative); Mucus,Urine Occasional /LPF (Occasional); Nitrite,Urine Negative (Negative); Protein,Urine Trace mg/dL (Negative); RBC,Urine 4 /HPF (0-4); Squamous Epithelial Cell,Urine Occasional /HPF (0-10); Urine Appearance Clear (Clear); Urine Color Yellow (Yellow); Urine Specific Gravity 1.015 (1.001-1.035)
[2022-07-09 21:51] LABS: Blood, Urine Negative (Negative); Urine Urobilinogen 0.2 eU/dL (<2.0)
[2022-07-09 22:11] LABS: Barbiturates Screen,Urine Negative (Negative); Benzodiazepines Screen,Urine Negative (Negative); Cannabinoid Screen,Urine Negative (Negative); Opiate Screen,Urine Negative (Negative); Phencyclidine Screen,Urine Negative (Negative)
[2022-07-09] MEDS ORDERED: SODIUM CHLORIDE 0.9% 1,000 ML IV SCH (23:45)
[2022-07-09] MEDS ORDERED: ONDANSETRON 4 MG/2 ML VIAL IV PRN (23:45)
[2022-07-09] MEDS ORDERED: GLUCAGON 1 MG VIAL IM PRN (23:45)
[2022-07-09] MEDS ORDERED: DEXTROSE 10% 250 ML BAG IV PRN (23:45)
[2022-07-09] MEDS ORDERED: ACETAMINOPHEN 325 MG TABLET PO PRN (23:45)
[2022-07-10] MEDS ORDERED: POTASSIUM CHLORIDE 20 MEQ TABLET PO PRN (01:46)
[2022-07-10] MEDS: PIPERACILLIN/TAZOBACTAM 3,375 MG in SODIUM CHLORIDE 0.9% 100 ML IV SCH ×3 (03:30→16:29)
[2022-07-10 05:19] LABS: Basophils % 0.4 % (0.0-0.8); Eosinophils # 0.1 10*3/uL (0.0-0.87); Eosinophils % 0.8 % (0.00-10.9); Hematocrit 35.5 VOL% (35.7-47.0); Immature Granulocytes % 0.3 %; Immature Granulocytes Absolute 0.02 #; Lymphocytes # 1.8 10*3/uL (1.4-4.0); Mean Corpuscular HGB Conc 33.8 GM/DL (32-36); Mean Corpuscular Volume 88.8 FL (87-102); Mean Platelet Volume 8.9 FL (9.6-12.0); Monocytes % 12.8 % (1.7-12.7); Neutrophils % 62.7 % (38.7-73.9); Platelet Count 240 T/CUMM (130-400); Red Cell Distribution Width 13.2 % (9.3-17.3); White Blood Count 7.9 T/CUMM (4-12)
[2022-07-10 05:40] LABS: CKMB % 1.09 %; Calcium 8.7 MG/DL (8.5-10.1); Osmolality,Calculated 267.2 MOS/KG (273-304); Potassium 3.4 MMOL/L (3.5-5.1)
[2022-07-10 05:42] LABS: High Sensitive Troponin I* 66.8 ng/L (0-54)
[2022-07-10] MEDS: PANTOPRAZOLE 40 MG TABLET PO SCH (08:59)
[2022-07-10] MEDS: ENOXAPARIN 40 MG/0.4 ML SYRINGE SUBCUT SCH (08:59)
[2022-07-10] MEDS: SODIUM BICARB INJ 50 MEQ in SODIUM CHLORIDE 0.45% 1,000 ML IV SCH ×2 (10:25→21:09)
[2022-07-10] MEDS: CHOLECALCIFEROL 1,000 UNIT TABLET PO SCH (10:49)
[2022-07-10] MEDS: amLODIPine 10 MG TABLET PO SCH (10:49)
[2022-07-10] MEDS ORDERED: hydrALAZINE 25 MG TABLET PO ONE (14:00)
[2022-07-10] MEDS ORDERED: carvediloL 6.25 MG TABLET PO ONE (14:00)
[2022-07-10 15:23] LABS: Osmolality,Calculated 269.4 MOS/KG (273-304)
[2022-07-10] MEDS: carvediloL 6.25 MG TABLET PO SCH (16:30)
[2022-07-10] MEDS: OLANZapine 10 MG VIAL IM PRN (17:37)
[2022-07-10] MEDS ORDERED: POTASSIUM BICARB EFFERVESCENT 20 MEQ TAB.EFF PER TUBE PRN (19:35)
[2022-07-10] MEDS: hydrALAZINE 25 MG TABLET PO SCH ×2 (21:10→21:32)
[2022-07-10] MEDS: POTASSIUM CHLORIDE RIDER 10 MEQ/100 ML PREMIX IV PRN ×3 (21:10→23:10)
[2022-07-10] MEDS: SIMVASTATIN 20 MG TABLET PO SCH ×2 (21:10→21:31)
[2022-07-11] MEDS: POTASSIUM CHLORIDE RIDER 10 MEQ/100 ML PREMIX IV PRN ×5 (00:10→15:30)
[2022-07-11] MEDS: PIPERACILLIN/TAZOBACTAM 3,375 MG in SODIUM CHLORIDE 0.9% 100 ML IV SCH ×3 (00:35→16:48)
[2022-07-11 05:31] LABS: Calcium 8.4 MG/DL (8.5-10.1); Osmolality,Calculated 261.5 MOS/KG (273-304); Potassium 3.5 MMOL/L (3.5-5.1)
[2022-07-11] MEDS: LEVOTHYROXINE 50 MCG TABLET PO SCH (06:10)
[2022-07-11] MEDS ORDERED: MAGNESIUM SULF RIDER 4 GM/100 ML PREMIX IV PRN (07:41)
[2022-07-11] MEDS: SODIUM BICARB INJ 50 MEQ in SODIUM CHLORIDE 0.45% 1,000 ML IV SCH ×2 (07:58→20:55)
[2022-07-11] MEDS: MAGNESIUM SULF RIDER 2 GM/50 ML PREMIX IV PRN (08:59)
[2022-07-11] MEDS: carvediloL 6.25 MG TABLET PO SCH ×2 (09:00→16:48)
[2022-07-11] MEDS: PANTOPRAZOLE 40 MG TABLET PO SCH (09:00)
[2022-07-11] MEDS: CHOLECALCIFEROL 1,000 UNIT TABLET PO SCH (09:00)
[2022-07-11] MEDS: hydrALAZINE 25 MG TABLET PO SCH ×2 (09:00→20:55)
[2022-07-11] MEDS: ENOXAPARIN 40 MG/0.4 ML SYRINGE SUBCUT SCH (09:00)
[2022-07-11] MEDS: amLODIPine 10 MG TABLET PO SCH (09:01)
[2022-07-11] MEDS: OLANZapine 10 MG VIAL IM PRN (18:50)
[2022-07-11] MEDS: SIMVASTATIN 20 MG TABLET PO SCH (20:56)
[2022-07-12] MEDS: PIPERACILLIN/TAZOBACTAM 3,375 MG in SODIUM CHLORIDE 0.9% 100 ML IV SCH ×3 (00:45→16:47)
[2022-07-12] MEDS: OLANZapine 10 MG VIAL IM PRN (03:57)
[2022-07-12] MEDS: LEVOTHYROXINE 50 MCG TABLET PO SCH (05:59)
[2022-07-12 06:22] LABS: Calcium 8.1 MG/DL (8.5-10.1); Osmolality,Calculated 267.4 MOS/KG (273-304); Potassium 3.3 MMOL/L (3.5-5.1)
[2022-07-12] MEDS: SODIUM BICARB INJ 50 MEQ in SODIUM CHLORIDE 0.45% 1,000 ML IV SCH ×2 (08:06→21:28)
[2022-07-12 08:07] LABS: Basophils % 0.2 % (0.0-0.8); Eosinophils % 0.2 % (0.00-10.9); Hematocrit 37.9 VOL% (35.7-47.0); Immature Granulocytes % 0.4 %; Immature Granulocytes Absolute 0.05 #; Lymphocytes # 2.6 10*3/uL (1.4-4.0); Lymphocytes % 19.8 % (21.3-54.2); Mean Corpuscular HGB Conc 34.3 GM/DL (32-36); Mean Corpuscular Volume 87.5 FL (87-102); Mean Platelet Volume 10.5 FL (9.6-12.0); Monocytes # 1.2 10*3/uL (0.11-0.8); Monocytes % 9.1 % (1.7-12.7); Neutrophils % 70.3 % (38.7-73.9); Platelet Count 192 T/CUMM (130-400); Red Blood Count 4.33 MC/CUMM (3.8-5.5); Red Cell Distribution Width 13.3 % (9.3-17.3); White Blood Count 13.1 T/CUMM (4-12)
[2022-07-12] MEDS ORDERED: hydrALAZINE 20 MG/1 ML VIAL IV PRN (08:30)
[2022-07-12] MEDS: ENOXAPARIN 40 MG/0.4 ML SYRINGE SUBCUT SCH (09:24)
[2022-07-12] MEDS: carvediloL 6.25 MG TABLET PO SCH ×2 (09:27→16:47)
[2022-07-12] MEDS: hydrALAZINE 25 MG TABLET PO SCH ×2 (09:27→20:55)
[2022-07-12] MEDS: amLODIPine 10 MG TABLET PO SCH (09:27)
[2022-07-12] MEDS: CHOLECALCIFEROL 1,000 UNIT TABLET PO SCH (09:28)
[2022-07-12] MEDS: PANTOPRAZOLE 40 MG TABLET PO SCH (09:28)
[2022-07-12] MEDS ORDERED: ZIPRASIDONE 20 MG/1 ML VIAL IM ONE (09:43)
[2022-07-12] MEDS: SIMVASTATIN 20 MG TABLET PO SCH (20:55)
[2022-07-13] MEDS: PIPERACILLIN/TAZOBACTAM 3,375 MG in SODIUM CHLORIDE 0.9% 100 ML IV SCH ×3 (01:31→17:16)
[2022-07-13] MEDS: LEVOTHYROXINE 50 MCG TABLET PO SCH (05:56)
[2022-07-13 06:17] LABS: Basophils % 0.3 % (0.0-0.8); Eosinophils # 0.1 10*3/uL (0.0-0.87); Eosinophils % 0.9 % (0.00-10.9); Hematocrit 32.5 VOL% (35.7-47.0); Hemoglobin 11.1 GM/DL (12.0-16.0); Immature Granulocytes % 0.3 %; Immature Granulocytes Absolute 0.03 #; Lymphocytes # 2.5 10*3/uL (1.4-4.0); Lymphocytes % 26.1 % (21.3-54.2); Mean Corpuscular HGB Conc 34.2 GM/DL (32-36); Mean Corpuscular Volume 88.3 FL (87-102); Mean Platelet Volume 8.8 FL (9.6-12.0); Monocytes % 10.6 % (1.7-12.7); Neutrophils % 61.8 % (38.7-73.9); Platelet Count 215 T/CUMM (130-400); Red Blood Count 3.68 MC/CUMM (3.8-5.5); Red Cell Distribution Width 13.7 % (9.3-17.3); White Blood Count 9.5 T/CUMM (4-12)
[2022-07-13 06:35] LABS: Albumin 2.8 G/DL (3.4-5.0); Bilirubin,Total 1.2 MG/DL (0.20-1.00); Calcium 8.1 MG/DL (8.5-10.1); Osmolality,Calculated 274.7 MOS/KG (273-304); Potassium 2.9 MMOL/L (3.5-5.1); Total Protein 6.2 G/DL (6.4-8.2)
[2022-07-13] MEDS: SODIUM BICARB INJ 50 MEQ in SODIUM CHLORIDE 0.45% 1,000 ML IV SCH ×3 (08:04→22:30)
[2022-07-13] MEDS: OLANZapine 10 MG VIAL IM PRN (09:25)
[2022-07-13] MEDS: ENOXAPARIN 40 MG/0.4 ML SYRINGE SUBCUT SCH (09:28)
[2022-07-13] MEDS: hydrALAZINE 25 MG TABLET PO SCH ×2 (10:16→21:49)
[2022-07-13] MEDS: amLODIPine 10 MG TABLET PO SCH (10:16)
[2022-07-13] MEDS: carvediloL 6.25 MG TABLET PO SCH ×2 (10:16→17:15)
[2022-07-13] MEDS: CHOLECALCIFEROL 1,000 UNIT TABLET PO SCH (10:17)
[2022-07-13] MEDS: PANTOPRAZOLE 40 MG TABLET PO SCH (10:17)
[2022-07-13] MEDS: POTASSIUM CHLORIDE RIDER 10 MEQ/100 ML PREMIX IV SCH ×4 (13:35→19:30)
[2022-07-13] MEDS: ZIPRASIDONE 20 MG/1 ML VIAL IM PRN (17:10)
[2022-07-13] MEDS: QUEtiapine 25 MG TABLET PO SCH (21:49)
[2022-07-13] MEDS: SIMVASTATIN 20 MG TABLET PO SCH (21:50)
[2022-07-14] MEDS: ZIPRASIDONE 20 MG/1 ML VIAL IM PRN ×2 (00:14→05:58)
[2022-07-14] MEDS: PIPERACILLIN/TAZOBACTAM 3,375 MG in SODIUM CHLORIDE 0.9% 100 ML IV SCH ×3 (00:50→17:03)
[2022-07-14] MEDS: LEVOTHYROXINE 50 MCG TABLET PO SCH (05:58)
[2022-07-14] MEDS: SODIUM BICARB INJ 50 MEQ in SODIUM CHLORIDE 0.45% 1,000 ML IV SCH (09:22)
[2022-07-14] MEDS: POTASSIUM CHLORIDE RIDER 10 MEQ/100 ML PREMIX IV PRN ×4 (09:24→17:55)
[2022-07-14] MEDS: ENOXAPARIN 40 MG/0.4 ML SYRINGE SUBCUT SCH (09:26)
[2022-07-14] MEDS: carvediloL 6.25 MG TABLET PO SCH ×2 (09:27→17:02)
[2022-07-14] MEDS: hydrALAZINE 25 MG TABLET PO SCH ×2 (09:27→20:04)
[2022-07-14] MEDS: PANTOPRAZOLE 40 MG TABLET PO SCH (09:28)
[2022-07-14] MEDS: amLODIPine 10 MG TABLET PO SCH (09:28)
[2022-07-14] MEDS: CHOLECALCIFEROL 1,000 UNIT TABLET PO SCH (09:29)
[2022-07-14 13:28] LABS: Calcium 8.4 MG/DL (8.5-10.1); Potassium 2.7 MMOL/L (3.5-5.1)
[2022-07-14] MEDS: MAGNESIUM SULF RIDER 2 GM/50 ML PREMIX IV PRN (15:08)
[2022-07-14] MEDS: QUEtiapine 25 MG TABLET PO SCH (20:04)
[2022-07-14] MEDS: SIMVASTATIN 20 MG TABLET PO SCH (20:04)
[2022-07-15] MEDS: PIPERACILLIN/TAZOBACTAM 3,375 MG in SODIUM CHLORIDE 0.9% 100 ML IV SCH ×3 (00:48→16:41)
[2022-07-15] MEDS: POTASSIUM CHLORIDE RIDER 10 MEQ/100 ML PREMIX IV PRN ×4 (03:56→10:00)
[2022-07-15] MEDS: LEVOTHYROXINE 50 MCG TABLET PO SCH (06:07)
[2022-07-15] MEDS: ENOXAPARIN 40 MG/0.4 ML SYRINGE SUBCUT SCH (09:59)
[2022-07-15] MEDS: CHOLECALCIFEROL 1,000 UNIT TABLET PO SCH (09:59)
[2022-07-15] MEDS: carvediloL 6.25 MG TABLET PO SCH ×2 (09:59→16:42)
[2022-07-15] MEDS: PANTOPRAZOLE 40 MG TABLET PO SCH (10:00)
[2022-07-15] MEDS: hydrALAZINE 25 MG TABLET PO SCH ×2 (10:00→21:38)
[2022-07-15] MEDS: amLODIPine 10 MG TABLET PO SCH (10:00)
[2022-07-15] MEDS: POTASSIUM CHLORIDE 20 MEQ TABLET PO SCH ×3 (10:08→21:37)
[2022-07-15] MEDS: MAGNESIUM OXIDE 400 MG TABLET PO SCH ×3 (10:09→21:37)
[2022-07-15 14:20] LABS: Basophils % 0.4 % (0.0-0.8); Eosinophils # 0.2 10*3/uL (0.0-0.87); Eosinophils % 2.2 % (0.00-10.9); Hemoglobin 10.7 GM/DL (12.0-16.0); Immature Granulocytes % 0.3 %; Immature Granulocytes Absolute 0.03 #; Lymphocytes # 1.7 10*3/uL (1.4-4.0); Lymphocytes % 17.5 % (21.3-54.2); Mean Corpuscular HGB Conc 34.5 GM/DL (32-36); Mean Corpuscular Volume 87.6 FL (87-102); Mean Platelet Volume 9.2 FL (9.6-12.0); Monocytes # 0.8 10*3/uL (0.11-0.8); Monocytes % 8.8 % (1.7-12.7); Neutrophils % 70.8 % (38.7-73.9); Platelet Count 234 T/CUMM (130-400); Red Blood Count 3.54 MC/CUMM (3.8-5.5); Red Cell Distribution Width 13.3 % (9.3-17.3); White Blood Count 9.5 T/CUMM (4-12)
[2022-07-15 14:33] LABS: Calcium 8.6 MG/DL (8.5-10.1); Osmolality,Calculated 274.4 MOS/KG (273-304); Potassium 3.3 MMOL/L (3.5-5.1)
[2022-07-15] MEDS: SODIUM BICARB INJ 50 MEQ in SODIUM CHLORIDE 0.45% 1,000 ML IV SCH (16:41)
[2022-07-15] MEDS: QUEtiapine 25 MG TABLET PO SCH (21:38)
[2022-07-15] MEDS: SIMVASTATIN 20 MG TABLET PO SCH (21:38)
[2022-07-16] MEDS: PIPERACILLIN/TAZOBACTAM 3,375 MG in SODIUM CHLORIDE 0.9% 100 ML IV SCH ×2 (00:31→10:04)
[2022-07-16 05:27] LABS: Basophils % 0.4 % (0.0-0.8); Eosinophils # 0.3 10*3/uL (0.0-0.87); Eosinophils % 3.2 % (0.00-10.9); Hematocrit 32.1 VOL% (35.7-47.0); Immature Granulocytes % 0.5 %; Immature Granulocytes Absolute 0.05 #; Lymphocytes % 21.8 % (21.3-54.2); Mean Corpuscular HGB Conc 34.3 GM/DL (32-36); Mean Corpuscular Volume 89.2 FL (87-102); Mean Platelet Volume 10.7 FL (9.6-12.0); Monocytes # 0.8 10*3/uL (0.11-0.8); Monocytes % 8.9 % (1.7-12.7); Neutrophils % 65.2 % (38.7-73.9); Platelet Count 189 T/CUMM (130-400); Red Cell Distribution Width 13.8 % (9.3-17.3); White Blood Count 9.2 T/CUMM (4-12)
[2022-07-16 05:33] LABS: Calcium 8.8 MG/DL (8.5-10.1); Osmolality,Calculated 268.4 MOS/KG (273-304); Potassium 3.7 MMOL/L (3.5-5.1)
[2022-07-16] MEDS: LEVOTHYROXINE 50 MCG TABLET PO SCH (05:57)
[2022-07-16] MEDS: SODIUM BICARB INJ 50 MEQ in SODIUM CHLORIDE 0.45% 1,000 ML IV SCH (07:53)
[2022-07-16] MEDS: MAGNESIUM OXIDE 400 MG TABLET PO SCH ×3 (10:08→21:30)
[2022-07-16] MEDS: hydrALAZINE 25 MG TABLET PO SCH ×2 (10:09→21:31)
[2022-07-16] MEDS: CHOLECALCIFEROL 1,000 UNIT TABLET PO SCH (10:09)
[2022-07-16] MEDS: PANTOPRAZOLE 40 MG TABLET PO SCH (10:10)
[2022-07-16] MEDS: carvediloL 6.25 MG TABLET PO SCH ×2 (10:10→16:34)
[2022-07-16] MEDS: amLODIPine 10 MG TABLET PO SCH (10:10)
[2022-07-16] MEDS: POTASSIUM CHLORIDE 20 MEQ TABLET PO SCH ×3 (10:12→21:30)
[2022-07-16] MEDS: ENOXAPARIN 40 MG/0.4 ML SYRINGE SUBCUT SCH (10:17)
[2022-07-16] MEDS: SIMVASTATIN 20 MG TABLET PO SCH (21:31)
[2022-07-16] MEDS: QUEtiapine 25 MG TABLET PO SCH (21:31)
[2022-07-17 05:01] LABS: Basophils % 0.4 % (0.0-0.8); Eosinophils # 0.2 10*3/uL (0.0-0.87); Eosinophils % 2.3 % (0.00-10.9); Hematocrit 29.5 VOL% (35.7-47.0); Hemoglobin 9.8 GM/DL (12.0-16.0); Immature Granulocytes % 0.6 %; Immature Granulocytes Absolute 0.04 #; Lymphocytes # 2.2 10*3/uL (1.4-4.0); Lymphocytes % 31.8 % (21.3-54.2); Mean Corpuscular HGB Conc 33.2 GM/DL (32-36); Mean Corpuscular Volume 90.2 FL (87-102); Mean Platelet Volume 9.3 FL (9.6-12.0); Monocytes # 0.7 10*3/uL (0.11-0.8); Monocytes % 9.7 % (1.7-12.7); Neutrophils % 55.2 % (38.7-73.9); Platelet Count 243 T/CUMM (130-400); Red Blood Count 3.27 MC/CUMM (3.8-5.5); Red Cell Distribution Width 13.9 % (9.3-17.3)
[2022-07-17 05:19] LABS: Calcium 8.8 MG/DL (8.5-10.1); Osmolality,Calculated 266.2 MOS/KG (273-304); Potassium 3.9 MMOL/L (3.5-5.1)
[2022-07-17 05:25] LABS: Calcium 8.6 MG/DL (8.5-10.1); Osmolality,Calculated 266.2 MOS/KG (273-304); Potassium 4.1 MMOL/L (3.5-5.1)
[2022-07-17] MEDS: LEVOTHYROXINE 50 MCG TABLET PO SCH (06:09)
[2022-07-17] MEDS: MAGNESIUM SULF RIDER 2 GM/50 ML PREMIX IV PRN (07:40)
[2022-07-17] MEDS: CHOLECALCIFEROL 1,000 UNIT TABLET PO SCH (08:56)
[2022-07-17] MEDS: hydrALAZINE 25 MG TABLET PO SCH (08:56)
[2022-07-17] MEDS: POTASSIUM CHLORIDE 20 MEQ TABLET PO SCH (08:56)
[2022-07-17] MEDS: PANTOPRAZOLE 40 MG TABLET PO SCH (08:56)
[2022-07-17] MEDS: ENOXAPARIN 40 MG/0.4 ML SYRINGE SUBCUT SCH (08:56)
[2022-07-17] MEDS: MAGNESIUM OXIDE 400 MG TABLET PO SCH (08:56)
[2022-07-17] MEDS: amLODIPine 10 MG TABLET PO SCH (08:56)
[2022-07-17] MEDS: carvediloL 6.25 MG TABLET PO SCH (08:57)
[2022-07-17 11:40] VITALS: BP 151/53
== END 2022-07-17 11:46 | disposition home or self-care (01) | DRG 193 ==
LOC: EDUNIT# → EDBD → N.ED 18:32 → N.EDINP 18:32 → SUATTDRO 23:45 → N.5E 07-10 01:36 → SUATTDRO 07-10 09:06 → N.5E 07-13 15:20
PROVIDERS: ADMIT Internal Medicine; ATTEND Internal Medicine

== ENCOUNTER 2022-09-09 13:33 | Observation (INO) ==
[2022-09-09] MEDS ORDERED: SODIUM CHLORIDE 0.9% 1,000 ML IV STA (15:36)
[2022-09-09 16:46] LABS: Basophils # 0.1 10*3/uL (0.0-0.2); Basophils % 1.1 % (0.0-0.8); Eosinophils # 0.3 10*3/uL (0.0-0.87); Hematocrit 34.3 VOL% (35.7-47.0); Hemoglobin 11.9 GM/DL (12.0-16.0); Immature Granulocytes % 0.3 %; Immature Granulocytes Absolute 0.02 #; Lymphocytes # 1.8 10*3/uL (1.4-4.0); Lymphocytes % 25.4 % (21.3-54.2); Mean Corpuscular HGB Conc 34.7 GM/DL (32-36); Mean Corpuscular Volume 87.1 FL (87-102); Mean Platelet Volume 8.9 FL (9.6-12.0); Monocytes # 1.3 10*3/uL (0.11-0.8); Neutrophils % 51.2 % (38.7-73.9); Platelet Count 304 T/CUMM (130-400); Red Blood Count 3.94 MC/CUMM (3.8-5.5); Red Cell Distribution Width 12.9 % (9.3-17.3); White Blood Count 7.1 T/CUMM (4-12)
[2022-09-09 17:05] LABS: Albumin 3.8 G/DL (3.4-5.0); Bilirubin,Total 0.5 MG/DL (0.20-1.00); Calcium 8.9 MG/DL (8.5-10.1); Osmolality,Calculated 260.8 MOS/KG (273-304); Potassium 3.9 MMOL/L (3.5-5.1); Thyroid Stimulating Hormone 2.1 uIU/ml (0.358-3.74); Total Protein 7.7 G/DL (6.4-8.2)
[2022-09-09 17:14] LABS: Bilirubin,Urine Negative (Negative); Blood, Urine Negative (Negative); Glucose,Urine (UA) Negative (Negative); Ketones,Urine Negative (Negative); Nitrite,Urine Negative (Negative); Protein,Urine Negative (Negative); Squamous Epithelial Cell,Urine Occasional /HPF (0-10); Urine Appearance CLEAR (Clear); Urine Color Straw (Yellow); Urine Specific Gravity 1.006 (1.001-1.035); Urine Urobilinogen < 2.0 eU/dL (<2.0)
[2022-09-09 17:17] LABS: Eosinophils 4 % (0-10); Lymphocytes 22 % (20-55); Total Cells Counted 100
[2022-09-09 17:18] LABS: Platelet Estimate Normal
[2022-09-09 17:25] LABS: Lactic Acid 1.1 MMOL/L (0.4-2.0)
[2022-09-09 17:32] LABS: Barbiturates Screen,Urine Negative (Negative); Benzodiazepines Screen,Urine Negative (Negative); Cannabinoid Screen,Urine Negative (Negative); Opiate Screen,Urine Negative (Negative); Phencyclidine Screen,Urine Negative (Negative)
[2022-09-09] MEDS ORDERED: ONDANSETRON 4 MG/2 ML VIAL IV PRN (18:00)
[2022-09-09] MEDS ORDERED: ACETAMINOPHEN 325 MG TABLET PO PRN (18:00)
[2022-09-09] MEDS ORDERED: SODIUM CHLORIDE 0.45% 1,000 ML IV SCH (18:00)
[2022-09-09] MEDS: carvediloL 6.25 MG TABLET PO SCH (21:08)
[2022-09-09] MEDS: hydrALAZINE 25 MG TABLET PO SCH (21:08)
[2022-09-09] MEDS: HEPARIN 5,000 UNIT/1 ML VIAL SUBCUT SCH (21:08)
[2022-09-10 04:39] LABS: Basophils # 0.1 10*3/uL (0.0-0.2); Basophils % 1.1 % (0.0-0.8); Eosinophils # 0.2 10*3/uL (0.0-0.87); Eosinophils % 3.2 % (0.00-10.9); Hematocrit 35.9 VOL% (35.7-47.0); Hemoglobin 12.5 GM/DL (12.0-16.0); Immature Granulocytes % 0.4 %; Immature Granulocytes Absolute 0.02 #; Lymphocytes # 1.6 10*3/uL (1.4-4.0); Lymphocytes % 29.2 % (21.3-54.2); Mean Corpuscular HGB Conc 34.8 GM/DL (32-36); Mean Corpuscular Volume 86.9 FL (87-102); Mean Platelet Volume 8.9 FL (9.6-12.0); Monocytes # 0.9 10*3/uL (0.11-0.8); Monocytes % 17.2 % (1.7-12.7); Neutrophils % 48.9 % (38.7-73.9); Platelet Count 291 T/CUMM (130-400); Red Blood Count 4.13 MC/CUMM (3.8-5.5); White Blood Count 5.4 T/CUMM (4-12)
[2022-09-10 05:02] LABS: Eosinophils 4 % (0-10); Lymphocytes 27 % (20-55); Platelet Estimate Adequate; Total Cells Counted 100
[2022-09-10 05:03] LABS: Calcium 9.1 MG/DL (8.5-10.1); Osmolality,Calculated 265.4 MOS/KG (273-304); Potassium 3.3 MMOL/L (3.5-5.1)
[2022-09-10] MEDS: LEVOTHYROXINE 50 MCG TABLET PO SCH (06:50)
[2022-09-10] MEDS: hydrALAZINE 25 MG TABLET PO SCH ×2 (09:12→20:23)
[2022-09-10] MEDS: carvediloL 6.25 MG TABLET PO SCH ×2 (09:13→20:23)
[2022-09-10] MEDS: HEPARIN 5,000 UNIT/1 ML VIAL SUBCUT SCH ×2 (09:13→20:33)
[2022-09-10] MEDS: amLODIPine 10 MG TABLET PO SCH (09:13)
[2022-09-10] MEDS: LACTATED RINGERS 1,000 ML IV SCH ×2 (17:17→21:24)
[2022-09-10] MEDS: DOCUSATE SODIUM 100 MG CAPSULE PO PRN (20:23)
[2022-09-11] MEDS: LACTATED RINGERS 1,000 ML IV SCH (01:15)
[2022-09-11 05:00] LABS: Basophils # 0.1 10*3/uL (0.0-0.2); Eosinophils # 0.2 10*3/uL (0.0-0.87); Eosinophils % 3.9 % (0.00-10.9); Immature Granulocytes % 0.2 %; Immature Granulocytes Absolute 0.01 #; Lymphocytes # 1.7 10*3/uL (1.4-4.0); Lymphocytes % 35.4 % (21.3-54.2); Mean Corpuscular HGB Conc 34.4 GM/DL (32-36); Mean Corpuscular Volume 87.2 FL (87-102); Mean Platelet Volume 8.4 FL (9.6-12.0); Monocytes # 0.9 10*3/uL (0.11-0.8); Neutrophils % 41.5 % (38.7-73.9); Platelet Count 253 T/CUMM (130-400); Red Blood Count 3.67 MC/CUMM (3.8-5.5); Red Cell Distribution Width 12.8 % (9.3-17.3); White Blood Count 4.9 T/CUMM (4-12)
[2022-09-11 05:23] LABS: Band Neutrophils 2 % (0-10); Eosinophils 4 % (0-10); Hypochromia Slight; Lymphocytes 41 % (20-55); Microcytosis Slight; Total Cells Counted 100
[2022-09-11 05:24] LABS: Platelet Estimate Normal; Target Cells Slight
[2022-09-11 05:25] LABS: Reactive Lymphocytes Few
[2022-09-11 05:39] LABS: Calcium 8.6 MG/DL (8.5-10.1); Osmolality,Calculated 263.5 MOS/KG (273-304); Potassium 3.2 MMOL/L (3.5-5.1)
[2022-09-11] MEDS: LEVOTHYROXINE 50 MCG TABLET PO SCH (06:16)
[2022-09-11 07:42] VITALS: BP 151/92
[2022-09-11] MEDS: carvediloL 6.25 MG TABLET PO SCH (08:37)
[2022-09-11] MEDS: amLODIPine 10 MG TABLET PO SCH (08:37)
[2022-09-11] MEDS: hydrALAZINE 25 MG TABLET PO SCH (08:37)
[2022-09-11] MEDS: HEPARIN 5,000 UNIT/1 ML VIAL SUBCUT SCH (08:37)
[2022-09-11] MEDS: DOCUSATE SODIUM 100 MG CAPSULE PO PRN (08:37)
[2022-09-11] MEDS ORDERED: POTASSIUM BICARB EFFERVESCENT 20 MEQ TAB.EFF PO ONE (10:44)
[2022-09-11] MEDS ORDERED: CHOLECALCIFEROL 5,000 UNIT TABLET PO SCH (11:00)
[2022-09-11] MEDS ORDERED: RIVASTIGMINE 4.6 MG/24 HR PATCH TRANSDERM SCH (11:00)
== END 2022-09-11 12:02 | disposition home health service (06) ==
LOC: N.EDINP 13:33 → N.ED 13:33 → N.2W 09-10 09:14
PROVIDERS: ADMIT Internal Medicine; ATTEND Internal Medicine

== ENCOUNTER 2022-10-21 13:45 | Inpatient (IN) ==
[2022-10-21] MEDS ORDERED: SODIUM CHLORIDE 0.9% 1,000 ML IV STA (16:05)
[2022-10-21 16:21] LABS: Bilirubin,Urine Negative (Negative); Blood, Urine Negative (Negative); Glucose,Urine (UA) Negative (Negative); Ketones,Urine Negative (Negative); Mucus,Urine Occasional /LPF (Occasional); Nitrite,Urine Negative (Negative); Protein,Urine Trace mg/dL (Negative); RBC,Urine 2 /HPF (0-4); Squamous Epithelial Cell,Urine Occasional /HPF (0-10); Urine Appearance Clear (Clear); Urine Color Yellow (Yellow); Urine Specific Gravity 1.025 (1.001-1.035); Urine Urobilinogen 0.2 eU/dL (<2.0); Urine pH 6.5 (4.5-8.0)
[2022-10-21 16:29] LABS: Basophils % 0.6 % (0.0-0.8); Eosinophils # 0.1 10*3/uL (0.0-0.87); Hematocrit 34.7 VOL% (35.7-47.0); Hemoglobin 11.9 GM/DL (12.0-16.0); Immature Granulocytes % 0.1 %; Immature Granulocytes Absolute 0.01 #; Lymphocytes # 1.5 10*3/uL (1.4-4.0); Lymphocytes % 20.6 % (21.3-54.2); Mean Corpuscular HGB Conc 34.3 GM/DL (32-36); Mean Corpuscular Volume 88.3 FL (87-102); Monocytes # 0.8 10*3/uL (0.11-0.8); Monocytes % 11.1 % (1.7-12.7); Neutrophils % 66.6 % (38.7-73.9); Platelet Count 337 T/CUMM (130-400); Red Blood Count 3.93 MC/CUMM (3.8-5.5); Red Cell Distribution Width 13.2 % (9.3-17.3); White Blood Count 7.1 T/CUMM (4-12)
[2022-10-21 16:35] LABS: INR 0.9; PT Patient Result 10.4 SECS (10.1-12.1); Partial Thromboplastin Time 29.2 SECS (23.7-32.9)
[2022-10-21 16:38] LABS: Albumin 4.1 G/DL (3.4-5.0); Bilirubin,Total 0.6 MG/DL (0.20-1.00); Calcium 9.1 MG/DL (8.5-10.1); Osmolality,Calculated 266.4 MOS/KG (273-304); Potassium 3.7 MMOL/L (3.5-5.1); Total Protein 7.7 G/DL (6.4-8.2)
[2022-10-21] MEDS ORDERED: ONDANSETRON 4 MG/2 ML VIAL IV PRN (18:38)
[2022-10-21] MEDS ORDERED: ACETAMINOPHEN 325 MG TABLET PO PRN (18:38)
[2022-10-21] MEDS ORDERED: hydrALAZINE 25 MG TABLET PO SCH (21:00)
[2022-10-21] MEDS ORDERED: hydrALAZINE 25 MG TABLET PO ONE (23:00)
[2022-10-21] MEDS ORDERED: carvediloL 6.25 MG TABLET PO ONE (23:00)
[2022-10-22 06:49] LABS: Calcium 8.7 MG/DL (8.5-10.1); Osmolality,Calculated 267.2 MOS/KG (273-304); Potassium 3.4 MMOL/L (3.5-5.1)
[2022-10-22 07:12] LABS: Basophils % 0.5 % (0.0-0.8); Eosinophils # 0.1 10*3/uL (0.0-0.87); Eosinophils % 1.6 % (0.00-10.9); Hematocrit 35.8 VOL% (35.7-47.0); Immature Granulocytes % 0.5 %; Immature Granulocytes Absolute 0.04 #; Lymphocytes # 1.1 10*3/uL (1.4-4.0); Lymphocytes % 13.9 % (21.3-54.2); Mean Corpuscular HGB Conc 33.5 GM/DL (32-36); Mean Platelet Volume 9.2 FL (9.6-12.0); Monocytes # 0.9 10*3/uL (0.11-0.8); Monocytes % 10.7 % (1.7-12.7); Neutrophils % 72.8 % (38.7-73.9); Platelet Count 319 T/CUMM (130-400); Red Blood Count 3.89 MC/CUMM (3.8-5.5); Red Cell Distribution Width 13.4 % (9.3-17.3); White Blood Count 8.1 T/CUMM (4-12)
[2022-10-22] MEDS: carvediloL 6.25 MG TABLET PO SCH ×3 (09:49→17:24)
[2022-10-22] MEDS: amLODIPine 10 MG TABLET PO SCH (09:59)
[2022-10-23] MEDS ORDERED: LEVOTHYROXINE 50 MCG TABLET PO SCH (06:30)
[2022-10-23] MEDS: amLODIPine 10 MG TABLET PO SCH (08:58)
[2022-10-23] MEDS: carvediloL 6.25 MG TABLET PO SCH (08:58)
[2022-10-23 11:39] VITALS: BP 117/50
== END 2022-10-23 15:28 | DRG 884 ==
LOC: EDBD → N.ED 13:45 → N.EDINP 18:38 → SUATTDRO 18:38 → N.3E 22:00
PROVIDERS: ADMIT Family Medicine; ATTEND Internal Medicine Geriatric Medicine